=== PATIENT | female | born 1975 | race African-American/Black ===

== ENCOUNTER 2017-12-06 13:30 | Inpatient (IN) ==
[2017-12-06] MEDS ORDERED: methylPREDNISolone SOD SUC 125 MG/2 ML VIAL ONE (13:36)
[2017-12-06] MEDS ORDERED: FAMOTIDINE 20 MG/2 ML VIAL IV ONE (13:36)
[2017-12-06] MEDS ORDERED: diphenhydrAMINE 50 MG/1 ML VIAL ONE (13:37)
[2017-12-06] MEDS ORDERED: PROPOFOL 1,000 MG/100 ML BOTTLE IV ONE (13:42)
[2017-12-06] MEDS ORDERED: methylPREDNISolone SOD SUC 125 MG/2 ML VIAL IV STA (13:44)
[2017-12-06] MEDS ORDERED: FAMOTIDINE 20 MG/2 ML VIAL IV STA (13:44)
[2017-12-06] MEDS ORDERED: ETOMIDATE 20 MG/10 ML VIAL IV STA (13:44)
[2017-12-06] MEDS ORDERED: diphenhydrAMINE 50 MG/1 ML VIAL IV STA (13:44)
[2017-12-06] MEDS ORDERED: SODIUM CHLORIDE 0.9% 1,000 ML IV ONE (13:44)
[2017-12-06] MEDS ORDERED: VECURONIUM 10 MG VIAL IV STA (13:45)
[2017-12-06] MEDS: PROPOFOL 1,000 MG/100 ML BOTTLE IV SCH ×5 (13:50→23:51)
[2017-12-06 14:00] LABS: Basophils % 0.2 % (0.0-0.8); Eosinophils % 0.4 % (0.00-10.9); Hematocrit 35.3 VOL% (35.7-47.0); Hemoglobin 11.6 GM/DL (12.0-16.0); Immature Granulocytes % 0.3 %; Immature Granulocytes Absolute 0.03 #; Lymphocytes % 27.7 % (21.3-54.2); Mean Corpuscular HGB Conc 32.9 GM/DL (32-36); Mean Corpuscular Hemoglobin 31 PG (27-34); Mean Corpuscular Volume 93.6 FL (87-102); Monocytes # 0.5 10*3/uL (0.11-0.8); Monocytes % 4.2 % (1.7-12.7); Neutrophils # 7.2 10*3/uL (1.4-7.4); Neutrophils % 67.2 % (38.7-73.9); Platelet Count 240 T/CUMM (130-400); Red Blood Count 3.77 MC/CUMM (3.8-5.5); Red Cell Distribution Width 13.3 % (9.3-17.3); White Blood Count 10.7 T/CUMM (4-12)
[2017-12-06 14:06] LABS: Alanine Aminotransferase 40 U/L (13-56); Albumin 3.5 G/DL (3.4-5.0); Alkaline Phosphatase 217 U/L (45-117); Aspartate Amino Transferase 22 U/L (0-37); Bilirubin,Total < 0.39 MG/DL (0.2-1.0); Blood Urea Nitrogen 18 MG/DL (7-18); Calcium 8.9 MG/DL (8.5-10.1); Glucose 125 MG/DL (74-106); Osmolality,Calculated 283.3 MOS/KG (273-304); Potassium 3.7 MMOL/L (3.5-5.1); Sodium 141 MMOL/L (136-145); Total Protein 8.1 G/DL (6.4-8.3)
[2017-12-06 14:17] LABS: Apearance,Urine CLEAR (Clear); Bacteria,Urine Occasional /HPF (Few); Bilirubin,Urine Negative (Negative); Blood, Urine Negative (Negative); Glucose,Urine (UA) Negative (Negative); Hyaline Casts,Urine 4 /LPF (0-3); Ketones,Urine Negative (Negative); Mucus,Urine Occasional /LPF (Occasional); Nitrite,Urine Negative (Negative); Protein,Urine >=500 MG/DL; RBC,Urine 1 /HPF (0-4); Squamous Epithelial Cell,Urine Occasional /HPF (0-10); Urine Color Yellow (Yellow); Urine Specific Gravity 1.022 (1.001-1.035); WBC,Urine 1 /HPF (0-6)
[2017-12-06 14:24] LABS: ABG HCO3 21.9 MMOL/L (20-26); ABG Oxygen Saturation 96.8 % (95-100); ABG PCO2 42.4 MM HG (35-48); ABG PH 7.337 (7.35-7.45); ABG TCO2 20.4 MMOL/L (23-27)
[2017-12-06] MEDS ORDERED: MIDAZOLAM 10 MG/2 ML VIAL ONE (15:10)
[2017-12-06] MEDS ORDERED: MIDAZOLAM 10 MG/2 ML VIAL IV STA ×2 (15:15→15:50)
[2017-12-06] MEDS ORDERED: ALBUTEROL 2.5 MG/3 ML NEB RESP TX PRN (15:35)
[2017-12-06] MEDS ORDERED: ONDANSETRON 4 MG/2 ML VIAL IV PRN (15:35)
[2017-12-06] MEDS ORDERED: FAMOTIDINE 20 MG/2 ML VIAL IV SCH (16:00)
[2017-12-06] MEDS ORDERED: LORazepam 2 MG/1 ML VIAL IV ONE (16:00)
[2017-12-06] MEDS ORDERED: LORazepam INJ 40 MG in DEXTROSE 5% 30 ML IV SCH (16:00)
[2017-12-06] MEDS ORDERED: LORazepam 2 MG/1 ML VIAL ONE (16:09)
[2017-12-06] MEDS: fentaNYL INJ 1,250 MCG in SODIUM CHLORIDE 0.9% 225 ML IV PRN (16:39)
[2017-12-06] MEDS: NOREPINEPHRINE 8 MG in SODIUM CHLORIDE 0.9% 242 ML IV SCH (17:29)
[2017-12-06] MEDS: SODIUM CHLORIDE 0.9% 1,000 ML IV SCH (17:31)
[2017-12-06] MEDS: MIDAZOLAM 100 MG in SODIUM CHLORIDE 0.9% 80 ML IV SCH (19:50)
[2017-12-06] MEDS: ALBUTEROL/IPRATROPIUM 3 ML NEB RESP TX SCH (20:17)
[2017-12-06] MEDS: diphenhydrAMINE 50 MG/1 ML VIAL IV SCH (20:38)
[2017-12-06] MEDS: methylPREDNISolone SOD SUC 125 MG/2 ML VIAL IV SCH (20:41)
[2017-12-07] MEDS: ALBUTEROL/IPRATROPIUM 3 ML NEB RESP TX SCH ×4 (00:58→19:35)
[2017-12-07] MEDS: PROPOFOL 1,000 MG/100 ML BOTTLE IV SCH ×9 (01:57→22:04)
[2017-12-07] MEDS: diphenhydrAMINE 50 MG/1 ML VIAL IV SCH ×4 (02:01→21:47)
[2017-12-07] MEDS: methylPREDNISolone SOD SUC 125 MG/2 ML VIAL IV SCH ×4 (02:05→21:47)
[2017-12-07] MEDS: FAMOTIDINE INJ 40 MG in SODIUM CHLORIDE 0.9% 100 ML IV SCH ×2 (02:08→15:56)
[2017-12-07 03:08] LABS: ABG HCO3 20.3 MMOL/L (20-26); ABG Oxygen Saturation 99.6 % (95-100); ABG PCO2 33.1 MM HG (35-48); ABG PH 7.376 (7.35-7.45); ABG TCO2 17.6 MMOL/L (23-27)
[2017-12-07] MEDS: fentaNYL INJ 1,250 MCG in SODIUM CHLORIDE 0.9% 225 ML IV PRN ×2 (03:26→15:30)
[2017-12-07] MEDS: SODIUM CHLORIDE 0.9% 1,000 ML IV SCH ×2 (03:29→14:16)
[2017-12-07 04:05] LABS: Basophils % 0.1 % (0.0-0.8); Hematocrit 31.4 VOL% (35.7-47.0); Hemoglobin 10.2 GM/DL (12.0-16.0); Immature Granulocytes % 0.4 %; Immature Granulocytes Absolute 0.04 #; Lymphocytes # 0.8 10*3/uL (1.4-4.0); Lymphocytes % 6.9 % (21.3-54.2); Mean Corpuscular HGB Conc 32.5 GM/DL (32-36); Mean Corpuscular Hemoglobin 30 PG (27-34); Mean Corpuscular Volume 93.7 FL (87-102); Monocytes % 0.4 % (1.7-12.7); Neutrophils # 10.1 10*3/uL (1.4-7.4); Neutrophils % 92.2 % (38.7-73.9); Platelet Count 185 T/CUMM (130-400); Red Blood Count 3.35 MC/CUMM (3.8-5.5); Red Cell Distribution Width 13.2 % (9.3-17.3); White Blood Count 10.9 T/CUMM (4-12)
[2017-12-07 04:38] LABS: Albumin 2.6 G/DL (3.4-5.0); Bilirubin,Total 0.5 MG/DL (0.2-1.0); Calcium 7.9 MG/DL (8.5-10.1); Osmolality,Calculated 287.4 MOS/KG (273-304); Risk Ratio 2.68; Thyroid Stimulating Hormone 0.167 uIU/ml (0.358-3.74); Total Protein 6.5 G/DL (6.4-8.3); VLDL CHOLESTEROL 23.8 MG/DL
[2017-12-07 04:44] LABS: Lymphocytes 9 % (20-55); Platelet Estimate Adequate; Segmented Neutrophils 91 % (50-85); Total Cells Counted 100
[2017-12-07 04:45] LABS: Hypochromasia 1+
[2017-12-07] MEDS ORDERED: DEXTROSE 50% 25 GM/50 ML VIAL IV PRN (08:41)
[2017-12-07] MEDS ORDERED: GLUCAGON 1 MG VIAL IM PRN (08:41)
[2017-12-07 09:02] LABS: Free T4 (Free Thyroxine) 1.07 NG/DL (0.76-1.46); Thyroid Stimulating Hormone 0.17 uIU/ml (0.358-3.74)
[2017-12-07] MEDS: INSULIN REGULAR 100 UNIT/ML SUBCUT SCH ×2 (11:51→18:40)
[2017-12-07] MEDS: NOREPINEPHRINE 8 MG in SODIUM CHLORIDE 0.9% 242 ML IV SCH (18:32)
[2017-12-07] MEDS: MIDAZOLAM 100 MG in SODIUM CHLORIDE 0.9% 80 ML IV SCH (18:33)
[2017-12-08] MEDS: SODIUM CHLORIDE 0.9% 1,000 ML IV SCH ×3 (00:20→20:38)
[2017-12-08] MEDS: PROPOFOL 1,000 MG/100 ML BOTTLE IV SCH ×12 (00:20→22:16)
[2017-12-08] MEDS: INSULIN REGULAR 100 UNIT/ML SUBCUT SCH ×4 (00:25→18:12)
[2017-12-08] MEDS: ALBUTEROL/IPRATROPIUM 3 ML NEB RESP TX SCH ×4 (00:49→19:46)
[2017-12-08] MEDS: FAMOTIDINE INJ 40 MG in SODIUM CHLORIDE 0.9% 100 ML IV SCH ×2 (02:36→16:24)
[2017-12-08 03:16] LABS: ABG Base Excess -4.7 MMOL/L (-2.5-2.5); ABG HCO3 20.5 MMOL/L (20-26); ABG Oxygen Saturation 98.8 % (95-100); ABG PCO2 38.1 MM HG (35-48); ABG PH 7.342 (7.35-7.45)
[2017-12-08] MEDS: diphenhydrAMINE 50 MG/1 ML VIAL IV SCH ×4 (03:22→23:08)
[2017-12-08] MEDS: methylPREDNISolone SOD SUC 125 MG/2 ML VIAL IV SCH ×4 (03:24→22:50)
[2017-12-08] MEDS: fentaNYL INJ 1,250 MCG in SODIUM CHLORIDE 0.9% 225 ML IV PRN ×2 (04:00→15:41)
[2017-12-08 04:55] LABS: Basophils % 0.1 % (0.0-0.8); Hematocrit 28.9 VOL% (35.7-47.0); Hemoglobin 9.4 GM/DL (12.0-16.0); Immature Granulocytes % 0.7 %; Immature Granulocytes Absolute 0.09 #; Lymphocytes # 0.7 10*3/uL (1.4-4.0); Lymphocytes % 5.7 % (21.3-54.2); Mean Corpuscular HGB Conc 32.5 GM/DL (32-36); Mean Corpuscular Hemoglobin 31 PG (27-34); Mean Corpuscular Volume 95.7 FL (87-102); Mean Platelet Volume 11.1 FL (9.6-12.0); Monocytes # 0.4 10*3/uL (0.11-0.8); Monocytes % 3.2 % (1.7-12.7); Neutrophils # 11.7 10*3/uL (1.4-7.4); Neutrophils % 90.3 % (38.7-73.9); Platelet Count 173 T/CUMM (130-400); Red Blood Count 3.02 MC/CUMM (3.8-5.5); Red Cell Distribution Width 13.4 % (9.3-17.3)
[2017-12-08 05:24] LABS: Albumin 2.4 G/DL (3.4-5.0); Bilirubin,Total 0.4 MG/DL (0.2-1.0); Calcium 7.4 MG/DL (8.5-10.1); Osmolality,Calculated 290.3 MOS/KG (273-304); Potassium 4.3 MMOL/L (3.5-5.1)
[2017-12-08] MEDS ORDERED: INFLUENZA VIRUS VACCINE 0.5 ML SYRINGE IM ONE (10:24)
[2017-12-08] MEDS: NOREPINEPHRINE 8 MG in SODIUM CHLORIDE 0.9% 242 ML IV SCH (17:10)
[2017-12-08] MEDS: MIDAZOLAM 100 MG in SODIUM CHLORIDE 0.9% 80 ML IV SCH (17:11)
[2017-12-09] MEDS: PROPOFOL 1,000 MG/100 ML BOTTLE IV SCH ×14 (00:06→23:10)
[2017-12-09] MEDS: ALBUTEROL/IPRATROPIUM 3 ML NEB RESP TX SCH ×4 (00:37→19:35)
[2017-12-09] MEDS: INSULIN REGULAR 100 UNIT/ML SUBCUT SCH ×4 (00:59→18:25)
[2017-12-09] MEDS: fentaNYL INJ 1,250 MCG in SODIUM CHLORIDE 0.9% 225 ML IV PRN ×4 (02:01→21:54)
[2017-12-09] MEDS: FAMOTIDINE INJ 40 MG in SODIUM CHLORIDE 0.9% 100 ML IV SCH ×2 (02:23→14:29)
[2017-12-09] MEDS: diphenhydrAMINE 50 MG/1 ML VIAL IV SCH ×4 (02:23→21:14)
[2017-12-09] MEDS: methylPREDNISolone SOD SUC 125 MG/2 ML VIAL IV SCH ×4 (02:23→21:14)
[2017-12-09 02:56] LABS: Basophils % 0.1 % (0.0-0.8); Hematocrit 28.7 VOL% (35.7-47.0); Immature Granulocytes % 0.8 %; Immature Granulocytes Absolute 0.11 #; Lymphocytes # 0.6 10*3/uL (1.4-4.0); Lymphocytes % 4.3 % (21.3-54.2); Mean Corpuscular HGB Conc 31.4 GM/DL (32-36); Mean Corpuscular Hemoglobin 30 PG (27-34); Mean Platelet Volume 11.4 FL (9.6-12.0); Monocytes # 0.3 10*3/uL (0.11-0.8); Monocytes % 2.4 % (1.7-12.7); Neutrophils # 12.5 10*3/uL (1.4-7.4); Neutrophils % 92.4 % (38.7-73.9); Platelet Count 160 T/CUMM (130-400); Red Blood Count 2.96 MC/CUMM (3.8-5.5); White Blood Count 13.5 T/CUMM (4-12)
[2017-12-09 03:30] LABS: INR 0.9; PT Patient Result 9.5 SECS; Partial Thromboplastin Time 22.4 SECS (0-40)
[2017-12-09 03:44] LABS: Alanine Aminotransferase 29 U/L (13-56); Albumin 2.3 G/DL (3.4-5.0); Alkaline Phosphatase 124 U/L (45-117); Aspartate Amino Transferase 10 U/L (0-37); Bilirubin,Total < 0.39 MG/DL (0.2-1.0); Blood Urea Nitrogen 15 MG/DL (7-18); Calcium 7.6 MG/DL (8.5-10.1); Glucose 246 MG/DL (74-106); Osmolality,Calculated 289.3 MOS/KG (273-304); Sodium 141 MMOL/L (136-145); Total Protein 5.9 G/DL (6.4-8.3)
[2017-12-09 04:31] LABS: Band Neutrophils 2 % (0-10); Lymphocytes 6 % (20-55); Segmented Neutrophils 92 % (50-85)
[2017-12-09 04:32] LABS: Platelet Estimate Adequate; Total Cells Counted 100
[2017-12-09 04:33] LABS: ABG HCO3 21.9 MMOL/L (20-26); ABG Oxygen Saturation 98.4 % (95-100); ABG PCO2 39.6 MM HG (35-48); ABG PH 7.357 (7.35-7.45); ABG TCO2 20.3 MMOL/L (23-27)
[2017-12-09] MEDS: SODIUM CHLORIDE 0.9% 1,000 ML IV SCH ×2 (05:31→15:51)
[2017-12-09 11:43] LABS: ABG Base Excess -1.8 MMOL/L (-2.5-2.5); ABG HCO3 22.9 MMOL/L (20-26); ABG Oxygen Saturation 98.3 % (95-100); ABG PCO2 39.7 MM HG (35-48); ABG PH 7.374 (7.35-7.45); ABG TCO2 21.2 MMOL/L (23-27)
[2017-12-09 13:35] LABS: Apearance,Urine CLEAR (Clear); Bilirubin,Urine Negative (Negative); Blood, Urine Negative (Negative); Glucose,Urine (UA) 50 mg/dL (Negative); Ketones,Urine Negative (Negative); Nitrite,Urine Negative (Negative); Protein,Urine 30 MG/DL; RBC,Urine 25 /HPF (0-4); Squamous Epithelial Cell,Urine Occasional /HPF (0-10); Urine Color Yellow (Yellow); Urine Specific Gravity 1.023 (1.001-1.035); WBC,Urine 15 /HPF (0-6)
[2017-12-09] MEDS: MIDAZOLAM 100 MG in SODIUM CHLORIDE 0.9% 80 ML IV SCH (16:55)
[2017-12-09] MEDS: NOREPINEPHRINE 8 MG in SODIUM CHLORIDE 0.9% 242 ML IV SCH (16:55)
[2017-12-09 17:33] LABS: Microalbum Ur Quant Random 19.4 MG/L (0-20)
[2017-12-10] MEDS: ALBUTEROL/IPRATROPIUM 3 ML NEB RESP TX SCH ×4 (00:04→19:21)
[2017-12-10] MEDS ORDERED: ACETAMINOPHEN 500 MG TABLET PO PRN (00:39)
[2017-12-10] MEDS: INSULIN REGULAR 100 UNIT/ML SUBCUT SCH ×4 (01:33→19:13)
[2017-12-10] MEDS: SODIUM CHLORIDE 0.9% 1,000 ML IV SCH ×2 (01:34→12:42)
[2017-12-10] MEDS: PROPOFOL 1,000 MG/100 ML BOTTLE IV SCH ×10 (01:36→23:06)
[2017-12-10] MEDS: FAMOTIDINE INJ 40 MG in SODIUM CHLORIDE 0.9% 100 ML IV SCH ×2 (02:00→16:36)
[2017-12-10] MEDS: methylPREDNISolone SOD SUC 125 MG/2 ML VIAL IV SCH ×4 (02:01→21:31)
[2017-12-10] MEDS: diphenhydrAMINE 50 MG/1 ML VIAL IV SCH ×2 (02:01→10:44)
[2017-12-10 03:26] LABS: Basophils % 0.1 % (0.0-0.8); Hematocrit 29.8 VOL% (35.7-47.0); Hemoglobin 9.5 GM/DL (12.0-16.0); Immature Granulocytes % 2.2 %; Immature Granulocytes Absolute 0.26 #; Lymphocytes # 0.5 10*3/uL (1.4-4.0); Lymphocytes % 3.8 % (21.3-54.2); Mean Corpuscular HGB Conc 31.9 GM/DL (32-36); Mean Corpuscular Hemoglobin 31 PG (27-34); Mean Corpuscular Volume 96.8 FL (87-102); Mean Platelet Volume 11.5 FL (9.6-12.0); Monocytes # 0.4 10*3/uL (0.11-0.8); Monocytes % 3.7 % (1.7-12.7); Neutrophils # 10.6 10*3/uL (1.4-7.4); Neutrophils % 90.2 % (38.7-73.9); Platelet Count 161 T/CUMM (130-400); Red Blood Count 3.08 MC/CUMM (3.8-5.5); Red Cell Distribution Width 13.7 % (9.3-17.3); White Blood Count 11.7 T/CUMM (4-12)
[2017-12-10 04:08] LABS: Albumin 2.3 G/DL (3.4-5.0); Bilirubin,Total 0.6 MG/DL (0.2-1.0); Calcium 7.5 MG/DL (8.5-10.1); Osmolality,Calculated 296.8 MOS/KG (273-304); Potassium 4.1 MMOL/L (3.5-5.1); Total Protein 5.9 G/DL (6.4-8.3)
[2017-12-10 04:15] LABS: ABG Base Excess -1.3 MMOL/L (-2.5-2.5); ABG HCO3 23.6 MMOL/L (20-26); ABG Oxygen Saturation 94.6 % (95-100); ABG PCO2 40.6 MM HG (35-48); ABG PH 7.383 (7.35-7.45); ABG PO2 81.6 MM HG (80-95); ABG TCO2 24.9 MMOL/L (23-27); Pt O2 Delivery Device Ventilator
[2017-12-10 04:41] LABS: Lymphocytes 4 % (20-55); Platelet Estimate Adequate; Polychromasia Few; Segmented Neutrophils 96 % (50-85); Total Cells Counted 100
[2017-12-10] MEDS: fentaNYL INJ 1,250 MCG in SODIUM CHLORIDE 0.9% 225 ML IV PRN ×2 (05:20→10:44)
[2017-12-10] MEDS ORDERED: fentaNYL INJ 2,500 MCG in SODIUM CHLORIDE 0.9% 200 ML IV PRN (10:58)
[2017-12-10] MEDS ORDERED: LORazepam 2 MG/1 ML VIAL IV ONE (11:19)
[2017-12-10] MEDS ORDERED: FUROSEMIDE 40 MG/4 ML VIAL IV ONE (11:21)
[2017-12-10] MEDS: fentaNYL INJ 2,500 MCG in SODIUM CHLORIDE 0.9% 450 ML IV PRN (15:31)
[2017-12-10] MEDS: MIDAZOLAM 100 MG in SODIUM CHLORIDE 0.9% 80 ML IV SCH (17:25)
[2017-12-10] MEDS: NOREPINEPHRINE 8 MG in SODIUM CHLORIDE 0.9% 242 ML IV SCH (17:26)
[2017-12-11] MEDS: fentaNYL INJ 2,500 MCG in SODIUM CHLORIDE 0.9% 450 ML IV PRN ×2 (00:58→13:54)
[2017-12-11] MEDS: INSULIN REGULAR 100 UNIT/ML SUBCUT SCH ×4 (01:15→18:53)
[2017-12-11] MEDS: ALBUTEROL/IPRATROPIUM 3 ML NEB RESP TX SCH ×4 (01:30→19:41)
[2017-12-11] MEDS: PROPOFOL 1,000 MG/100 ML BOTTLE IV SCH ×10 (01:56→23:13)
[2017-12-11] MEDS: methylPREDNISolone SOD SUC 125 MG/2 ML VIAL IV SCH ×3 (02:46→21:11)
[2017-12-11] MEDS: FAMOTIDINE INJ 40 MG in SODIUM CHLORIDE 0.9% 100 ML IV SCH ×2 (02:46→15:40)
[2017-12-11 04:19] LABS: ABG Base Excess 0.8 MMOL/L (-2.5-2.5); ABG HCO3 25.1 MMOL/L (20-26); ABG Oxygen Saturation 98.3 % (95-100); ABG PH 7.395 (7.35-7.45); ABG TCO2 23.4 MMOL/L (23-27)
[2017-12-11 04:58] LABS: Basophils % 0.1 % (0.0-0.8); Hematocrit 29.6 VOL% (35.7-47.0); Hemoglobin 9.3 GM/DL (12.0-16.0); Immature Granulocytes % 1.2 %; Immature Granulocytes Absolute 0.13 #; Lymphocytes # 0.9 10*3/uL (1.4-4.0); Lymphocytes % 8.2 % (21.3-54.2); Mean Corpuscular HGB Conc 31.4 GM/DL (32-36); Mean Corpuscular Hemoglobin 30 PG (27-34); Mean Corpuscular Volume 96.7 FL (87-102); Mean Platelet Volume 11.4 FL (9.6-12.0); Monocytes # 0.6 10*3/uL (0.11-0.8); Monocytes % 5.8 % (1.7-12.7); Neutrophils # 9.4 10*3/uL (1.4-7.4); Neutrophils % 84.7 % (38.7-73.9); Platelet Count 152 T/CUMM (130-400); Red Blood Count 3.06 MC/CUMM (3.8-5.5); Red Cell Distribution Width 13.6 % (9.3-17.3); White Blood Count 11.1 T/CUMM (4-12)
[2017-12-11 05:30] LABS: Albumin 2.1 G/DL (3.4-5.0); Bilirubin,Total 0.4 MG/DL (0.2-1.0); Calcium 7.5 MG/DL (8.5-10.1); Osmolality,Calculated 301.6 MOS/KG (273-304); Potassium 3.8 MMOL/L (3.5-5.1); Total Protein 5.8 G/DL (6.4-8.3)
[2017-12-11] MEDS: SODIUM CHLORIDE 0.9% 1,000 ML IV SCH (13:53)
[2017-12-11] MEDS: FUROSEMIDE 20 MG/2 ML VIAL IV SCH (16:05)
[2017-12-11] MEDS: MIDAZOLAM 100 MG in SODIUM CHLORIDE 0.9% 80 ML IV SCH (18:53)
[2017-12-11] MEDS: NOREPINEPHRINE 8 MG in SODIUM CHLORIDE 0.9% 242 ML IV SCH (18:53)
[2017-12-11] MEDS: NYSTATIN 500,000 UNIT/5 ML UDCUP SWISH/SWAL SCH (21:11)
[2017-12-11] MEDS: FLUCONAZOLE INJ 200 MG in PREMIX 1 EACH IV SCH (21:11)
[2017-12-12] MEDS: PROPOFOL 1,000 MG/100 ML BOTTLE IV SCH ×14 (01:19→22:50)
[2017-12-12] MEDS: ALBUTEROL/IPRATROPIUM 3 ML NEB RESP TX SCH ×4 (01:20→19:33)
[2017-12-12 02:49] LABS: ABG Base Excess 3.2 MMOL/L (-2.5-2.5); ABG HCO3 27.3 MMOL/L (20-26); ABG PCO2 38.6 MM HG (35-48); ABG PH 7.455 (7.35-7.45); ABG PO2 98.8 MM HG (80-95); ABG TCO2 24.8 MMOL/L (23-27); Pt O2 Delivery Device Ventilator
[2017-12-12] MEDS: FAMOTIDINE INJ 40 MG in SODIUM CHLORIDE 0.9% 100 ML IV SCH (03:02)
[2017-12-12] MEDS: INSULIN REGULAR 100 UNIT/ML SUBCUT SCH ×4 (03:02→17:44)
[2017-12-12] MEDS: fentaNYL INJ 2,500 MCG in SODIUM CHLORIDE 0.9% 450 ML IV PRN (03:07)
[2017-12-12] MEDS: NYSTATIN 500,000 UNIT/5 ML UDCUP SWISH/SWAL SCH ×4 (09:16→21:20)
[2017-12-12] MEDS: methylPREDNISolone SOD SUC 125 MG/2 ML VIAL IV SCH (09:16)
[2017-12-12] MEDS: FUROSEMIDE 20 MG/2 ML VIAL IV SCH ×2 (09:16→17:45)
[2017-12-12] MEDS ORDERED: ACETAMINOPHEN 325 MG TABLET PO PRN (09:49)
[2017-12-12] MEDS: cefTRIAXone 1,000 MG in SYRINGE 1 EACH IV SCH (11:04)
[2017-12-12] MEDS: ENOXAPARIN 40 MG/0.4 ML SYRINGE SUBCUT SCH (11:07)
[2017-12-12] MEDS: amLODIPine 2.5 MG TABLET PO SCH (11:07)
[2017-12-12] MEDS: MIDAZOLAM 100 MG in SODIUM CHLORIDE 0.9% 80 ML IV SCH (17:10)
[2017-12-12] MEDS: metFORMIN 500 MG TABLET PO SCH (17:45)
[2017-12-12] MEDS: FLUCONAZOLE INJ 200 MG in PREMIX 1 EACH IV SCH (21:20)
[2017-12-13] MEDS: INSULIN REGULAR 100 UNIT/ML SUBCUT SCH ×4 (00:31→17:53)
[2017-12-13] MEDS: ALBUTEROL/IPRATROPIUM 3 ML NEB RESP TX SCH ×4 (00:43→19:29)
[2017-12-13] MEDS: PROPOFOL 1,000 MG/100 ML BOTTLE IV SCH ×5 (01:00→15:22)
[2017-12-13 03:13] LABS: Basophils % 0.2 % (0.0-0.8); Eosinophils # 0.1 10*3/uL (0.0-0.87); Eosinophils % 0.4 % (0.00-10.9); Hematocrit 25.4 VOL% (35.7-47.0); Hemoglobin 7.9 GM/DL (12.0-16.0); Immature Granulocytes % 0.5 %; Immature Granulocytes Absolute 0.06 #; Lymphocytes # 2.2 10*3/uL (1.4-4.0); Lymphocytes % 17.7 % (21.3-54.2); Mean Corpuscular HGB Conc 31.1 GM/DL (32-36); Mean Corpuscular Hemoglobin 29 PG (27-34); Mean Corpuscular Volume 94.1 FL (87-102); Mean Platelet Volume 10.8 FL (9.6-12.0); Monocytes # 0.7 10*3/uL (0.11-0.8); Neutrophils # 9.3 10*3/uL (1.4-7.4); Neutrophils % 75.2 % (38.7-73.9); Platelet Count 110 T/CUMM (130-400); Red Cell Distribution Width 13.2 % (9.3-17.3); White Blood Count 12.4 T/CUMM (4-12)
[2017-12-13 03:37] LABS: ABG Base Excess 6.3 MMOL/L (-2.5-2.5); ABG HCO3 30.2 MMOL/L (20-26); ABG Oxygen Saturation 97.5 % (95-100); ABG PCO2 38.6 MM HG (35-48); ABG PH 7.498 (7.35-7.45); ABG PO2 91.9 MM HG (80-95); ABG TCO2 27.3 MMOL/L (23-27); Allen Test Positive; Pt O2 Delivery Device Ventilator
[2017-12-13 03:52] LABS: Calcium 7.6 MG/DL (8.5-10.1); Osmolality,Calculated 294.7 MOS/KG (273-304); Potassium 2.8 MMOL/L (3.5-5.1)
[2017-12-13] MEDS: fentaNYL INJ 2,500 MCG in SODIUM CHLORIDE 0.9% 450 ML IV PRN (04:00)
[2017-12-13] MEDS: NYSTATIN 500,000 UNIT/5 ML UDCUP SWISH/SWAL SCH ×4 (08:42→21:30)
[2017-12-13] MEDS: LANSOPRAZOLE ODT 30 MG TABLET PO SCH (08:42)
[2017-12-13] MEDS: amLODIPine 2.5 MG TABLET PO SCH (08:42)
[2017-12-13] MEDS: FUROSEMIDE 20 MG/2 ML VIAL IV SCH ×2 (08:43→17:34)
[2017-12-13] MEDS: metFORMIN 500 MG TABLET PO SCH ×2 (08:43→17:11)
[2017-12-13] MEDS: POTASSIUM CHLORIDE RIDER 10 MEQ in PREMIX 1 EACH IV PRN ×4 (08:49→12:25)
[2017-12-13] MEDS ORDERED: methylPREDNISolone SOD SUC 125 MG/2 ML VIAL IV SCH (09:00)
[2017-12-13] MEDS ORDERED: SODIUM CHLORIDE 0.9% 1,000 ML IV PRN (09:35)
[2017-12-13] MEDS: cefTRIAXone 1,000 MG in SYRINGE 1 EACH IV SCH (11:16)
[2017-12-13] MEDS: ENOXAPARIN 40 MG/0.4 ML SYRINGE SUBCUT SCH (11:19)
[2017-12-13] MEDS: methylPREDNISolone SOD SUC 40 MG/1 ML VIAL IV SCH ×2 (11:23→18:22)
[2017-12-13] MEDS: MULTIVITAMIN LIQUID (CENTRUM) 60 ML BOTTLE PO SCH ×2 (15:26→16:36)
[2017-12-13] MEDS: MORPHINE 4 MG/1 ML VIAL IV PRN ×2 (17:32→22:19)
[2017-12-13] MEDS ORDERED: METOPROLOL TARTRATE 5 MG/5 ML VIAL IV ONE (20:51)
[2017-12-13] MEDS: FLUCONAZOLE INJ 200 MG in PREMIX 1 EACH IV SCH (21:30)
[2017-12-13] MEDS ORDERED: RACEPINEPHRINE 0.5 ML NEB RESP TX ONE (23:00)
[2017-12-14 00:05] LABS: Hematocrit 40.7 VOL% (35.7-47.0); Hemoglobin 12.6 GM/DL (12.0-16.0)
[2017-12-14] MEDS: INSULIN REGULAR 100 UNIT/ML SUBCUT SCH ×4 (00:32→17:42)
[2017-12-14] MEDS: METOPROLOL TARTRATE 5 MG/5 ML VIAL IV PRN ×5 (01:45→23:51)
[2017-12-14] MEDS: ALBUTEROL/IPRATROPIUM 3 ML NEB RESP TX SCH ×4 (01:58→19:02)
[2017-12-14] MEDS: methylPREDNISolone SOD SUC 40 MG/1 ML VIAL IV SCH ×3 (02:07→17:42)
[2017-12-14] MEDS: LORazepam 2 MG/1 ML VIAL IV PRN ×3 (02:38→14:32)
[2017-12-14 04:00] LABS: ABG HCO3 29.9 MMOL/L (20-26); ABG Oxygen Saturation 96.9 % (95-100); ABG PCO2 52.6 MM HG (35-48); ABG PH 7.397 (7.35-7.45); ABG TCO2 28.5 MMOL/L (23-27)
[2017-12-14 05:13] LABS: Basophils % 0.1 % (0.0-0.8); Eosinophils % 0.1 % (0.00-10.9); Hematocrit 40.6 VOL% (35.7-47.0); Hemoglobin 12.6 GM/DL (12.0-16.0); Immature Granulocytes % 0.9 %; Immature Granulocytes Absolute 0.14 #; Lymphocytes # 0.7 10*3/uL (1.4-4.0); Lymphocytes % 4.2 % (21.3-54.2); Mean Corpuscular Hemoglobin 29 PG (27-34); Mean Corpuscular Volume 94.9 FL (87-102); Mean Platelet Volume 12.2 FL (9.6-12.0); Monocytes # 0.5 10*3/uL (0.11-0.8); Monocytes % 3.1 % (1.7-12.7); Neutrophils # 14.4 10*3/uL (1.4-7.4); Neutrophils % 91.6 % (38.7-73.9); Platelet Count 100 T/CUMM (130-400); Red Blood Count 4.28 MC/CUMM (3.8-5.5); White Blood Count 15.7 T/CUMM (4-12)
[2017-12-14 05:42] LABS: Calcium 8.6 MG/DL (8.5-10.1); Potassium 4.1 MMOL/L (3.5-5.1)
[2017-12-14 05:47] LABS: Lymphocytes 1 % (20-55); Myelocytes 1 %; Platelet Estimate Decreased; Polychromasia Few; Segmented Neutrophils 97 % (50-85); Total Cells Counted 100
[2017-12-14] MEDS: RACEPINEPHRINE 0.5 ML NEB RESP TX PRN (07:53)
[2017-12-14] MEDS: ENOXAPARIN 40 MG/0.4 ML SYRINGE SUBCUT SCH (09:59)
[2017-12-14] MEDS: cefTRIAXone 1,000 MG in SYRINGE 1 EACH IV SCH (10:02)
[2017-12-14] MEDS ORDERED: FAMOTIDINE INJ 40 MG in SODIUM CHLORIDE 0.9% 100 ML IV SCH (13:00)
[2017-12-14] MEDS: metFORMIN 500 MG TABLET PO SCH ×2 (14:17→16:26)
[2017-12-14] MEDS: NYSTATIN 500,000 UNIT/5 ML UDCUP SWISH/SWAL SCH ×4 (14:18→20:57)
[2017-12-14] MEDS: CETIRIZINE 5 MG TABLET PO SCH ×2 (14:23→20:57)
[2017-12-14] MEDS: MONTELUKAST 10 MG TABLET PO SCH ×2 (14:23→20:57)
[2017-12-14] MEDS: amLODIPine 2.5 MG TABLET PO SCH (14:23)
[2017-12-14] MEDS: MULTIVITAMIN LIQUID (CENTRUM) 60 ML BOTTLE PO SCH (14:23)
[2017-12-14] MEDS: cloNIDine 0.1 MG TABLET PO PRN ×2 (16:26→20:57)
[2017-12-14] MEDS: LANSOPRAZOLE ODT 30 MG TABLET PO SCH (18:59)
[2017-12-14] MEDS: FLUCONAZOLE INJ 200 MG in PREMIX 1 EACH IV SCH (21:05)
[2017-12-15] MEDS: INSULIN REGULAR 100 UNIT/ML SUBCUT SCH ×4 (00:12→18:31)
[2017-12-15] MEDS: ALBUTEROL/IPRATROPIUM 3 ML NEB RESP TX SCH ×4 (00:16→20:21)
[2017-12-15] MEDS: LORazepam 2 MG/1 ML VIAL IV PRN (02:25)
[2017-12-15] MEDS: methylPREDNISolone SOD SUC 40 MG/1 ML VIAL IV SCH ×3 (02:25→14:30)
[2017-12-15 03:43] LABS: Basophils % 0.1 % (0.0-0.8); Eosinophils % 0.1 % (0.00-10.9); Hematocrit 36.1 VOL% (35.7-47.0); Hemoglobin 11.4 GM/DL (12.0-16.0); Immature Granulocytes % 1.2 %; Immature Granulocytes Absolute 0.15 #; Lymphocytes # 1.2 10*3/uL (1.4-4.0); Lymphocytes % 10.2 % (21.3-54.2); Mean Corpuscular HGB Conc 31.6 GM/DL (32-36); Mean Corpuscular Hemoglobin 30 PG (27-34); Mean Platelet Volume 12.7 FL (9.6-12.0); Monocytes # 0.8 10*3/uL (0.11-0.8); Monocytes % 6.7 % (1.7-12.7); Neutrophils # 9.9 10*3/uL (1.4-7.4); Neutrophils % 81.7 % (38.7-73.9); Red Blood Count 3.84 MC/CUMM (3.8-5.5); Red Cell Distribution Width 13.4 % (9.3-17.3); White Blood Count 12.1 T/CUMM (4-12)
[2017-12-15 03:47] LABS: Platelet Count 97 T/CUMM (130-400)
[2017-12-15 03:59] LABS: Albumin 2.2 G/DL (3.4-5.0); Bilirubin,Total 0.7 MG/DL (0.2-1.0); Calcium 8.3 MG/DL (8.5-10.1); Osmolality,Calculated 297.8 MOS/KG (273-304); Potassium 3.7 MMOL/L (3.5-5.1); Total Protein 6.3 G/DL (6.4-8.3)
[2017-12-15 04:10] LABS: Hypochromasia Slight; Platelet Estimate Decreased
[2017-12-15] MEDS: cloNIDine 0.1 MG TABLET PO PRN ×2 (04:36→12:25)
[2017-12-15 04:40] LABS: ABG Base Excess 6.8 MMOL/L (-2.5-2.5); ABG HCO3 30.5 MMOL/L (20-26); ABG Oxygen Saturation 95.1 % (95-100); ABG PCO2 40.2 MM HG (35-48); ABG PH 7.498 (7.35-7.45); ABG PO2 78.6 MM HG (80-95); ABG TCO2 31.7 MMOL/L (23-27); Allen Test Positive; Pt O2 Delivery Device Venturi Mask
[2017-12-15] MEDS: amLODIPine 2.5 MG TABLET PO SCH (08:56)
[2017-12-15] MEDS: metFORMIN 500 MG TABLET PO SCH ×2 (08:56→17:10)
[2017-12-15] MEDS: NYSTATIN 500,000 UNIT/5 ML UDCUP SWISH/SWAL SCH ×4 (08:56→21:56)
[2017-12-15] MEDS: MONTELUKAST 10 MG TABLET PO SCH ×2 (08:56→21:56)
[2017-12-15] MEDS: CETIRIZINE 5 MG TABLET PO SCH ×2 (08:56→21:56)
[2017-12-15] MEDS: MULTIVITAMIN LIQUID (CENTRUM) 60 ML BOTTLE PO SCH (08:56)
[2017-12-15] MEDS ORDERED: NIFEdipine 10 MG CAPSULE PO PRN (10:55)
[2017-12-15] MEDS: cefTRIAXone 1,000 MG in SYRINGE 1 EACH IV SCH (11:05)
[2017-12-15] MEDS: METOPROLOL TARTRATE 25 MG TABLET PO SCH ×2 (11:35→21:56)
[2017-12-15] MEDS: FAMOTIDINE 20 MG TABLET PO SCH ×2 (11:35→21:57)
[2017-12-15] MEDS: ENOXAPARIN 40 MG/0.4 ML SYRINGE SUBCUT SCH (11:35)
[2017-12-16] MEDS: INSULIN REGULAR 100 UNIT/ML SUBCUT SCH ×4 (00:38→17:38)
[2017-12-16] MEDS: ALBUTEROL/IPRATROPIUM 3 ML NEB RESP TX SCH ×4 (01:43→20:07)
[2017-12-16 04:06] LABS: ABG Base Excess 6.7 MMOL/L (-2.5-2.5); ABG HCO3 30.4 MMOL/L (20-26); ABG PCO2 40.8 MM HG (35-48); ABG PH 7.484 (7.35-7.45); ABG TCO2 27.2 MMOL/L (23-27); Allen Test Positive; Pt O2 Delivery Device Room Air
[2017-12-16] MEDS: methylPREDNISolone SOD SUC 40 MG/1 ML VIAL IV SCH (05:58)
[2017-12-16 07:28] LABS: Calcium 8.4 MG/DL (8.5-10.1); Osmolality,Calculated 297.4 MOS/KG (273-304); Potassium 3.4 MMOL/L (3.5-5.1)
[2017-12-16] MEDS: amLODIPine 2.5 MG TABLET PO SCH (08:33)
[2017-12-16] MEDS: metFORMIN 500 MG TABLET PO SCH ×2 (08:34→16:05)
[2017-12-16] MEDS: METOPROLOL TARTRATE 25 MG TABLET PO SCH ×2 (08:34→20:30)
[2017-12-16] MEDS: NYSTATIN 500,000 UNIT/5 ML UDCUP SWISH/SWAL SCH ×4 (08:34→20:30)
[2017-12-16] MEDS: MONTELUKAST 10 MG TABLET PO SCH ×2 (08:34→20:30)
[2017-12-16] MEDS: FAMOTIDINE 20 MG TABLET PO SCH ×2 (08:34→20:30)
[2017-12-16] MEDS ORDERED: FLUCONAZOLE 100 MG TABLET PO SCH (09:00)
[2017-12-16] MEDS: MULTIVITAMIN LIQUID (CENTRUM) 60 ML BOTTLE PO SCH (09:59)
[2017-12-16] MEDS: CETIRIZINE 5 MG TABLET PO SCH (10:00)
[2017-12-16] MEDS: ENOXAPARIN 40 MG/0.4 ML SYRINGE SUBCUT SCH (10:48)
[2017-12-16] MEDS: cefTRIAXone 1,000 MG in SYRINGE 1 EACH IV SCH (10:48)
[2017-12-16] MEDS: MORPHINE 4 MG/1 ML VIAL IV PRN (16:03)
[2017-12-16] MEDS: ZINC OXIDE PASTE 113 GM TUBE TOP SCH (20:30)
[2017-12-17] MEDS: INSULIN REGULAR 100 UNIT/ML SUBCUT SCH ×4 (00:18→17:37)
[2017-12-17] MEDS: ALBUTEROL/IPRATROPIUM 3 ML NEB RESP TX SCH ×4 (01:24→19:14)
[2017-12-17 02:56] LABS: ABG Base Excess 6.3 MMOL/L (-2.5-2.5); ABG Oxygen Saturation 92.6 % (95-100); ABG PCO2 37.4 MM HG (35-48); ABG PH 7.507 (7.35-7.45); ABG PO2 62.2 MM HG (80-95); ABG TCO2 26.1 MMOL/L (23-27)
[2017-12-17 03:24] LABS: Basophils % 0.1 % (0.0-0.8); Eosinophils % 0.4 % (0.00-10.9); Hematocrit 36.9 VOL% (35.7-47.0); Hemoglobin 11.7 GM/DL (12.0-16.0); Immature Granulocytes % 0.7 %; Immature Granulocytes Absolute 0.08 #; Lymphocytes # 3.5 10*3/uL (1.4-4.0); Lymphocytes % 31.9 % (21.3-54.2); Mean Corpuscular HGB Conc 31.7 GM/DL (32-36); Mean Corpuscular Hemoglobin 30 PG (27-34); Mean Corpuscular Volume 93.4 FL (87-102); Mean Platelet Volume 12.2 FL (9.6-12.0); Monocytes # 0.8 10*3/uL (0.11-0.8); Monocytes % 7.5 % (1.7-12.7); Neutrophils # 6.6 10*3/uL (1.4-7.4); Neutrophils % 59.4 % (38.7-73.9); Platelet Count 115 T/CUMM (130-400); Red Blood Count 3.95 MC/CUMM (3.8-5.5); Red Cell Distribution Width 12.9 % (9.3-17.3)
[2017-12-17] MEDS ORDERED: PHENOL 1.4% THROAT SPRAY 177 ML BOTTLE PO PRN (03:46)
[2017-12-17 04:04] LABS: Calcium 8.4 MG/DL (8.5-10.1); Osmolality,Calculated 290.8 MOS/KG (273-304); Potassium 3.3 MMOL/L (3.5-5.1)
[2017-12-17] MEDS: methylPREDNISolone SOD SUC 40 MG/1 ML VIAL IV SCH (08:31)
[2017-12-17] MEDS: FAMOTIDINE 20 MG TABLET PO SCH ×2 (08:31→20:33)
[2017-12-17] MEDS: metFORMIN 500 MG TABLET PO SCH (08:31)
[2017-12-17] MEDS: ZINC OXIDE PASTE 113 GM TUBE TOP SCH ×2 (08:31→20:34)
[2017-12-17] MEDS: MONTELUKAST 10 MG TABLET PO SCH ×2 (08:31→20:33)
[2017-12-17] MEDS: METOPROLOL TARTRATE 25 MG TABLET PO SCH ×2 (08:31→20:33)
[2017-12-17] MEDS: amLODIPine 2.5 MG TABLET PO SCH (08:31)
[2017-12-17] MEDS: NYSTATIN 500,000 UNIT/5 ML UDCUP SWISH/SWAL SCH ×4 (08:31→20:34)
[2017-12-17] MEDS: MULTIVITAMIN LIQUID (CENTRUM) 60 ML BOTTLE PO SCH (08:34)
[2017-12-17] MEDS: POTASSIUM CHLORIDE 20 MEQ TABLET PO PRN ×3 (09:58→17:46)
[2017-12-17] MEDS: cefTRIAXone 1,000 MG in SYRINGE 1 EACH IV SCH (09:59)
[2017-12-17] MEDS: ENOXAPARIN 40 MG/0.4 ML SYRINGE SUBCUT SCH (09:59)
[2017-12-17] MEDS: DEXTROSE 5% NACL 0.45% 1,000 ML IV SCH (14:40)
[2017-12-17] MEDS: RACEPINEPHRINE 0.5 ML NEB RESP TX PRN (18:00)
[2017-12-17] MEDS ORDERED: MELATONIN 3 MG TABLET PO SCH (21:00)
[2017-12-18] MEDS: INSULIN REGULAR 100 UNIT/ML SUBCUT SCH ×3 (00:10→12:00)
[2017-12-18] MEDS: ALBUTEROL/IPRATROPIUM 3 ML NEB RESP TX SCH ×3 (00:21→13:02)
[2017-12-18] MEDS: DEXTROSE 5% NACL 0.45% 1,000 ML IV SCH (03:22)
[2017-12-18 05:34] LABS: Basophils % 0.1 % (0.0-0.8); Eosinophils # 0.1 10*3/uL (0.0-0.87); Eosinophils % 0.5 % (0.00-10.9); Hematocrit 37.8 VOL% (35.7-47.0); Hemoglobin 12.1 GM/DL (12.0-16.0); Immature Granulocytes % 0.9 %; Immature Granulocytes Absolute 0.09 #; Lymphocytes # 2.5 10*3/uL (1.4-4.0); Lymphocytes % 23.9 % (21.3-54.2); Mean Corpuscular Hemoglobin 30 PG (27-34); Mean Corpuscular Volume 93.6 FL (87-102); Mean Platelet Volume 12.4 FL (9.6-12.0); Monocytes # 0.7 10*3/uL (0.11-0.8); Monocytes % 6.9 % (1.7-12.7); Neutrophils # 7.1 10*3/uL (1.4-7.4); Neutrophils % 67.7 % (38.7-73.9); Platelet Count 108 T/CUMM (130-400); Red Blood Count 4.04 MC/CUMM (3.8-5.5); Red Cell Distribution Width 12.9 % (9.3-17.3); White Blood Count 10.5 T/CUMM (4-12)
[2017-12-18 05:51] LABS: Calcium 8.6 MG/DL (8.5-10.1); Potassium 3.5 MMOL/L (3.5-5.1)
[2017-12-18] MEDS: MONTELUKAST 10 MG TABLET PO SCH (08:18)
[2017-12-18] MEDS: NYSTATIN 500,000 UNIT/5 ML UDCUP SWISH/SWAL SCH ×2 (08:18→12:10)
[2017-12-18] MEDS: amLODIPine 2.5 MG TABLET PO SCH (08:18)
[2017-12-18] MEDS: METOPROLOL TARTRATE 25 MG TABLET PO SCH (08:19)
[2017-12-18] MEDS: POTASSIUM CHLORIDE 20 MEQ TABLET PO PRN (08:19)
[2017-12-18] MEDS: FAMOTIDINE 20 MG TABLET PO SCH (08:19)
[2017-12-18] MEDS: methylPREDNISolone SOD SUC 40 MG/1 ML VIAL IV SCH (08:19)
[2017-12-18] MEDS: ENOXAPARIN 40 MG/0.4 ML SYRINGE SUBCUT SCH ×2 (08:24→10:37)
[2017-12-18] MEDS ORDERED: VANCOMYCIN INJ 1,750 MG in SODIUM CHLORIDE 0.9% 500 ML IV SCH (08:30)
[2017-12-18] MEDS: ZINC OXIDE PASTE 113 GM TUBE TOP SCH (08:45)
[2017-12-18] MEDS: MULTIVITAMIN LIQUID (CENTRUM) 60 ML BOTTLE PO SCH (08:45)
[2017-12-18 13:21] VITALS: BP 135/81
== END 2017-12-18 14:47 | disposition left against medical advice (07) | DRG 207 ==
LOC: N.ED 13:30 → N.EDINP 15:34 → SUATTDRO 15:34 → N.CC 16:02 → N.5E 12-15 13:22
PROVIDERS: ADMIT Internal Medicine Geriatric Medicine; ATTEND Internal Medicine

== ENCOUNTER 2017-12-28 07:44 | Inpatient (IN) ==
[2017-12-28] MEDS ORDERED: methylPREDNISolone SOD SUC 125 MG/2 ML VIAL IV STA (07:55)
[2017-12-28] MEDS ORDERED: RACEPINEPHRINE 0.5 ML NEB RESP TX STA ×2 (07:56→09:33)
[2017-12-28 08:14] LABS: Basophils % 0.3 % (0.0-0.8); Eosinophils % 0.2 % (0.00-10.9); Hematocrit 41.3 VOL% (35.7-47.0); Hemoglobin 13.6 GM/DL (12.0-16.0); Immature Granulocytes % 0.4 %; Immature Granulocytes Absolute 0.04 #; Lymphocytes # 1.9 10*3/uL (1.4-4.0); Mean Corpuscular HGB Conc 32.9 GM/DL (32-36); Mean Corpuscular Hemoglobin 30 PG (27-34); Mean Corpuscular Volume 91.4 FL (87-102); Monocytes # 0.6 10*3/uL (0.11-0.8); Monocytes % 5.9 % (1.7-12.7); Neutrophils # 7.4 10*3/uL (1.4-7.4); Neutrophils % 74.2 % (38.7-73.9); Platelet Count 256 T/CUMM (130-400); Red Blood Count 4.52 MC/CUMM (3.8-5.5); Red Cell Distribution Width 13.2 % (9.3-17.3); White Blood Count 9.9 T/CUMM (4-12)
[2017-12-28 08:22] LABS: INR 0.9; PT Patient Result 9.3 SECS; Partial Thromboplastin Time < 21.0 SECS (0-40)
[2017-12-28 08:37] LABS: Lactic Acid 2.9 MMOL/L (0.4-2.0)
[2017-12-28 08:44] LABS: Albumin 3.7 G/DL (3.4-5.0); Bilirubin,Total 0.4 MG/DL (0.2-1.0); Osmolality,Calculated 292.1 MOS/KG (273-304); Potassium 4.2 MMOL/L (3.5-5.1)
[2017-12-28] MEDS ORDERED: INSULIN LISPRO 100 UNIT/ML SUBCUT STA (09:27)
[2017-12-28] MEDS ORDERED: RACEPINEPHRINE 0.5 ML NEB RESP TX PRN (11:03)
[2017-12-28] MEDS ORDERED: GLUCAGON 1 MG VIAL IM PRN (11:03)
[2017-12-28] MEDS ORDERED: ONDANSETRON 4 MG/2 ML VIAL IV PRN (11:03)
[2017-12-28] MEDS ORDERED: DEXTROSE 50% 25 GM/50 ML VIAL IV PRN (11:03)
[2017-12-28] MEDS: CARVEDILOL 12.5 MG TABLET PO SCH ×2 (11:06→20:26)
[2017-12-28] MEDS: SODIUM CHLORIDE 0.9% 1,000 ML IV SCH ×2 (11:44→19:21)
[2017-12-28] MEDS: PANTOPRAZOLE 40 MG TABLET PO SCH (11:47)
[2017-12-28] MEDS: glipiZIDE 10 MG TABLET PO SCH ×2 (11:47→20:26)
[2017-12-28] MEDS: CIPROFLOXACIN 500 MG TABLET PO SCH ×2 (11:47→20:26)
[2017-12-28] MEDS: ENOXAPARIN 40 MG/0.4 ML SYRINGE SUBCUT SCH (11:47)
[2017-12-28] MEDS: INSULIN LISPRO 100 UNIT/ML SUBCUT SCH ×3 (12:10→20:26)
[2017-12-28] MEDS: guaiFENesin/DM ER 600-30 MG TABLET PO PRN (17:06)
[2017-12-28] MEDS: traZODone 50 MG TABLET PO PRN (20:26)
[2017-12-29 03:49] LABS: Basophils % 0.1 % (0.0-0.8); Eosinophils % 0.2 % (0.00-10.9); Hematocrit 33.6 VOL% (35.7-47.0); Hemoglobin 11.2 GM/DL (12.0-16.0); Immature Granulocytes % 0.5 %; Immature Granulocytes Absolute 0.05 #; Lymphocytes # 2.5 10*3/uL (1.4-4.0); Lymphocytes % 26.1 % (21.3-54.2); Mean Corpuscular HGB Conc 33.3 GM/DL (32-36); Mean Corpuscular Hemoglobin 30 PG (27-34); Mean Corpuscular Volume 91.3 FL (87-102); Mean Platelet Volume 11.9 FL (9.6-12.0); Monocytes # 0.7 10*3/uL (0.11-0.8); Monocytes % 7.5 % (1.7-12.7); Neutrophils # 6.4 10*3/uL (1.4-7.4); Neutrophils % 65.6 % (38.7-73.9); Platelet Count 204 T/CUMM (130-400); Red Blood Count 3.68 MC/CUMM (3.8-5.5); Red Cell Distribution Width 13.2 % (9.3-17.3); White Blood Count 9.7 T/CUMM (4-12)
[2017-12-29 04:10] LABS: Calcium 8.8 MG/DL (8.5-10.1); Osmolality,Calculated 290.1 MOS/KG (273-304); Potassium 3.4 MMOL/L (3.5-5.1)
[2017-12-29] MEDS: SODIUM CHLORIDE 0.9% 1,000 ML IV SCH ×3 (05:07→19:38)
[2017-12-29] MEDS: INSULIN LISPRO 100 UNIT/ML SUBCUT SCH ×4 (07:42→20:08)
[2017-12-29] MEDS: glipiZIDE 10 MG TABLET PO SCH ×2 (08:43→20:07)
[2017-12-29] MEDS: CIPROFLOXACIN 500 MG TABLET PO SCH ×2 (08:43→20:08)
[2017-12-29] MEDS: PANTOPRAZOLE 40 MG TABLET PO SCH (08:43)
[2017-12-29] MEDS: CARVEDILOL 12.5 MG TABLET PO SCH ×2 (08:44→20:08)
[2017-12-29] MEDS ORDERED: ALBUTEROL/IPRATROPIUM 3 ML NEB RESP TX PRN (09:34)
[2017-12-29] MEDS: MONTELUKAST 10 MG TABLET PO SCH ×2 (10:10→20:07)
[2017-12-29] MEDS: FAMOTIDINE 20 MG TABLET PO SCH ×2 (10:10→20:07)
[2017-12-29] MEDS: metFORMIN 500 MG TABLET PO SCH ×2 (10:11→20:07)
[2017-12-29] MEDS: CETIRIZINE 10 MG TABLET PO SCH (10:11)
[2017-12-29] MEDS: POTASSIUM CHLORIDE 20 MEQ TABLET PO SCH ×2 (10:12→13:02)
[2017-12-29] MEDS: ACETAMINOPHEN 325 MG TABLET PO PRN (10:12)
[2017-12-29] MEDS: methylPREDNISolone SOD SUC 125 MG/2 ML VIAL IV SCH ×2 (10:13→18:15)
[2017-12-29] MEDS: ENOXAPARIN 40 MG/0.4 ML SYRINGE SUBCUT SCH (11:00)
[2017-12-29] MEDS: guaiFENesin/DM ER 600-30 MG TABLET PO PRN (11:30)
[2017-12-29] MEDS ORDERED: POTASSIUM CHLORIDE 20 MEQ TABLET PO SCH (13:00)
[2017-12-29] MEDS: LACTULOSE 20 GM/30 ML UDCUP PO PRN (14:51)
[2017-12-29] MEDS: ALBUTEROL/IPRATROPIUM 3 ML NEB RESP TX SCH ×2 (16:03→19:40)
[2017-12-29] MEDS: traZODone 50 MG TABLET PO PRN (20:08)
[2017-12-30] MEDS: ALBUTEROL/IPRATROPIUM 3 ML NEB RESP TX SCH ×4 (00:26→20:15)
[2017-12-30] MEDS: methylPREDNISolone SOD SUC 125 MG/2 ML VIAL IV SCH ×3 (02:51→21:01)
[2017-12-30] MEDS: SODIUM CHLORIDE 0.9% 1,000 ML IV SCH (03:17)
[2017-12-30 03:55] LABS: Basophils % 0.1 % (0.0-0.8); Hematocrit 33.2 VOL% (35.7-47.0); Hemoglobin 10.8 GM/DL (12.0-16.0); Immature Granulocytes % 0.5 %; Immature Granulocytes Absolute 0.05 #; Lymphocytes # 0.9 10*3/uL (1.4-4.0); Lymphocytes % 9.6 % (21.3-54.2); Mean Corpuscular HGB Conc 32.5 GM/DL (32-36); Mean Corpuscular Hemoglobin 30 PG (27-34); Mean Platelet Volume 11.9 FL (9.6-12.0); Monocytes # 0.2 10*3/uL (0.11-0.8); Neutrophils # 8.4 10*3/uL (1.4-7.4); Neutrophils % 87.8 % (38.7-73.9); Platelet Count 199 T/CUMM (130-400); Red Blood Count 3.57 MC/CUMM (3.8-5.5); Red Cell Distribution Width 13.1 % (9.3-17.3); White Blood Count 9.5 T/CUMM (4-12)
[2017-12-30 04:21] LABS: Calcium 8.4 MG/DL (8.5-10.1); Osmolality,Calculated 297.1 MOS/KG (273-304); Potassium 4.2 MMOL/L (3.5-5.1)
[2017-12-30] MEDS: ACETAMINOPHEN 325 MG TABLET PO PRN ×3 (07:31→21:06)
[2017-12-30] MEDS: INSULIN LISPRO 100 UNIT/ML SUBCUT SCH ×4 (08:57→21:01)
[2017-12-30] MEDS: CARVEDILOL 12.5 MG TABLET PO SCH ×2 (08:58→21:07)
[2017-12-30] MEDS: CIPROFLOXACIN 500 MG TABLET PO SCH ×2 (08:58→21:06)
[2017-12-30] MEDS: metFORMIN 500 MG TABLET PO SCH ×2 (08:58→21:06)
[2017-12-30] MEDS: FAMOTIDINE 20 MG TABLET PO SCH ×2 (08:59→21:07)
[2017-12-30] MEDS: PANTOPRAZOLE 40 MG TABLET PO SCH (08:59)
[2017-12-30] MEDS: glipiZIDE 10 MG TABLET PO SCH ×2 (08:59→21:07)
[2017-12-30] MEDS ORDERED: INSULIN GLARGINE 100 UNIT/ML SUBCUT SCH (09:00)
[2017-12-30] MEDS: CETIRIZINE 10 MG TABLET PO SCH (09:00)
[2017-12-30] MEDS: MONTELUKAST 10 MG TABLET PO SCH ×2 (09:00→21:06)
[2017-12-30] MEDS: guaiFENesin/DM ER 600-30 MG TABLET PO PRN (09:57)
[2017-12-30] MEDS: LACTULOSE 20 GM/30 ML UDCUP PO PRN (10:00)
[2017-12-30] MEDS: ENOXAPARIN 40 MG/0.4 ML SYRINGE SUBCUT SCH (13:16)
[2017-12-30] MEDS: INSULIN NPH 100 UNIT/ML SUBCUT SCH (17:07)
[2017-12-30] MEDS: traZODone 50 MG TABLET PO PRN (21:07)
[2017-12-31] MEDS: ALBUTEROL/IPRATROPIUM 3 ML NEB RESP TX SCH ×2 (00:42→07:30)
[2017-12-31 05:32] LABS: Calcium 8.9 MG/DL (8.5-10.1); Osmolality,Calculated 291.3 MOS/KG (273-304)
[2017-12-31] MEDS: ACETAMINOPHEN 325 MG TABLET PO PRN ×2 (07:13→12:47)
[2017-12-31] MEDS: INSULIN NPH 100 UNIT/ML SUBCUT SCH (08:08)
[2017-12-31] MEDS: methylPREDNISolone SOD SUC 125 MG/2 ML VIAL IV SCH (08:09)
[2017-12-31] MEDS: INSULIN LISPRO 100 UNIT/ML SUBCUT SCH ×2 (08:09→12:47)
[2017-12-31] MEDS: glipiZIDE 10 MG TABLET PO SCH (08:10)
[2017-12-31] MEDS: PANTOPRAZOLE 40 MG TABLET PO SCH (08:10)
[2017-12-31] MEDS: CIPROFLOXACIN 500 MG TABLET PO SCH (08:11)
[2017-12-31] MEDS: guaiFENesin/DM ER 600-30 MG TABLET PO PRN (08:11)
[2017-12-31] MEDS: NIFEdipine 10 MG CAPSULE PO PRN ×2 (08:11→12:47)
[2017-12-31] MEDS: CARVEDILOL 12.5 MG TABLET PO SCH (08:11)
[2017-12-31] MEDS: MONTELUKAST 10 MG TABLET PO SCH (08:11)
[2017-12-31] MEDS: CETIRIZINE 10 MG TABLET PO SCH (08:11)
[2017-12-31] MEDS: FAMOTIDINE 20 MG TABLET PO SCH (08:11)
[2017-12-31] MEDS: metFORMIN 500 MG TABLET PO SCH (08:11)
[2017-12-31] MEDS: LACTULOSE 20 GM/30 ML UDCUP PO PRN (09:53)
[2017-12-31] MEDS: ENOXAPARIN 40 MG/0.4 ML SYRINGE SUBCUT SCH (12:07)
[2017-12-31 12:49] VITALS: BP 141/113
== END 2017-12-31 13:53 | disposition home or self-care (01) | DRG 204 ==
LOC: N.ED 07:44 → SUATTDRO 10:09 → N.EDINP 10:09 → N.ICU 10:25 → N.2E 12-30 14:48
PROVIDERS: ADMIT Internal Medicine; ATTEND Internal Medicine